=== PATIENT | female | born 1945 | race Caucasian/White ===

== ENCOUNTER 2018-01-26 12:50 | Outpatient (CLI) | payer MEDICARE, BC | END 2018-01-26 12:51 | disposition home or self-care (01) | LOC: BICMAMMO 12:50 | PROVIDERS: ATTEND Internal Medicine Medical Oncology | DX: Z12.31 Encounter for screening mammogram for malignant neoplasm of breast (principal); D80.1 Nonfamilial hypogammaglobulinemia; N18.3 Chronic kidney disease, stage 3 (moderate); D50.0 Iron deficiency anemia secondary to blood loss (chronic); Z85.6 Personal history of leukemia | CPT/HCPCS: 77063; 77067 ==

== ENCOUNTER 2018-07-20 11:51 | Outpatient (CLI) | payer MEDICARE, BC | END 2018-07-20 11:52 | disposition home or self-care (01) | LOC: BICRAD 11:51 | PROVIDERS: ATTEND Internal Medicine Medical Oncology | DX: C91.10 Chronic lymphocytic leukemia of B-cell type not having achieved remission (principal); R63.4 Abnormal weight loss | CPT/HCPCS: 71046 ==

== ENCOUNTER 2020-01-02 09:31 | Outpatient (CLI) | payer MEDICARE, BC ==
--- NOTE | 2020-01-02 10:44 | ULT ---
TRANSABDOMINAL TRANSVAGINAL PELVIC ULTRASOUND DATE:: 01/02/2020 12:00 AM CLINICAL HISTORY: Frequent urinary tract infections. COMPARISON: CT the chest, abdomen and pelvis dated November 16, 2014 TECHNIQUE: Grayscale, color Doppler and spectral Doppler images were obtained of the pelvis see a tra nsabdominal and transvaginal approach FINDINGS: UTERUS: Size: 5.8 x 4.0 x 2.1 Mass: None Cervix: Within normal limits Endometrial Thickness: 2.9 mm. Small amount of fluid is seen within the endometrial canal. OVARIES: Not visualized CUL-DE-SAC: No free fluid IMPRESSION: Small atrophic uterus. Endometrial stripe measures 2.9 mm, within normal limits for age and postmenopausal status. Small peter unt of fluid is seen within the endometrial canal is nonspecific. Recommend correlation for any exogenous hormones administered. Nonvisualization of the ovaries.
--- NOTE | 2020-01-02 11:13 | ULT ---
ULTRASOUND ABDOMEN COMPLETE: DATE: 01/02/2020. HISTORY: A 74-year-old female with frequent urinary tract infections. FINDINGS: Liver: Normal size and echogenicity. Gallbladder: Surgically absent. Common duct: 11 mm. Spleen: 22 x 9.5 x 9 cm. Nonspecific small focal 1.5 x 1.5 x 1 cm heterogeneously hypoechoic lesion within the spleen parenchyma. Pancreas: Nonspecific sonographic appearance. Kidneys: No hydronephrosis. Thin renal parenchyma, not unusual for age. Abdominal aorta: No aneurysm. Inferior vena cava: Unremarkable where visualized. No free fluid identified. IMPRESSION: 1. Splenomegaly. 2. Status post cholecystectomy. 3. Dilated common duct due to Status post cholecystectomy, unchanged when compared to CT of 5. JN R POS: CET
--- NOTE | 2020-01-02 11:23 | MMO ---
Bilateral MAMMO Bilat Screen [facility]. CLINICAL HISTORY: Patient is 74 years old and is seen for screening. The patient has no family history of breast cancer. The patient has a history of leukemia in 1991. The patient has a history of left Excisional Biopsy at age 43 - benign. VIEWS: The views performed were: bilateral craniocaudal with tomosynthesis and bilateral mediolateral oblique with tomosynthesis. FILMS COMPARED: The present examination has been compared to prior imaging studies performed at [facility] on 09/27/2014, 10/16/2015, 11/24/2016 and 01/26/2018. This study has been interpreted with the assistance of computer-aided detection. MAMMOGRAM FINDINGS: There are scattered fibroglandular densities. Finding 1: There are stable benign appearing calcifications seen in both breasts. Finding 2: There is a stable intramammary lymph node seen in the right breast. Finding 3: There are several stable focal asymmetries seen in both breasts. There are no suspicious masses, suspicious calcifications, or new areas of architectural distortion. IMPRESSION: THERE IS NO MAMMOGRAPHIC EVIDENCE OF MALIGNANCY. A ROUTINE FOLLOW-UP MAMMOGRAM IN 1 YEAR IS RECOMMENDED. THE RESULTS OF THIS EXAM WERE SENT TO THE PATIENT. ACR BI-RADS Category 2 - Benign finding MAMMOGRAPHY NOTE: 1. A negative mammogram report should not delay a biopsy if a dominant of clinically suspicious mass is present. 2. Approximately 10% to 15% of breast cancers are not detected by mammography. 3. Adenosis and dense breasts may obscure an underlying neoplasm. Reported by: PELON MILLS MD Electonically Signed: [id number]
== END 2020-01-02 09:32 | disposition home or self-care (01) ==
LOC: BICULT 09:31
PROVIDERS: ATTEND Internal Medicine Medical Oncology
DX: Z12.31 Encounter for screening mammogram for malignant neoplasm of breast (principal); N39.0 Urinary tract infection, site not specified; R16.1 Splenomegaly, not elsewhere classified; K83.8 Other specified diseases of biliary tract; N85.8 Other specified noninflammatory disorders of uterus; Z91.89 Other specified personal risk factors, not elsewhere classified; Z85.6 Personal history of leukemia; Z90.49 Acquired absence of other specified parts of digestive tract
CPT/HCPCS: 76856; 77063; 77067; 93975

== ENCOUNTER 2021-01-30 13:27 | Outpatient (CLI) | payer MEDICARE, BC | END 2021-01-30 13:28 | disposition home or self-care (01) | LOC: BICRAD 13:27 | PROVIDERS: ATTEND Internal Medicine Medical Oncology | DX: C91.10 Chronic lymphocytic leukemia of B-cell type not having achieved remission (principal); N18.30 Chronic kidney disease, stage 3 unspecified | CPT/HCPCS: 36415; 71046; 80048; 83970 ==

== ENCOUNTER 2022-04-22 15:27 | Outpatient (CLI) | payer MEDICARE, BC | END 2022-04-22 15:28 | disposition home or self-care (01) | LOC: BICULT 15:27 | PROVIDERS: ATTEND Internal Medicine Medical Oncology | DX: R60.0 Localized edema (principal); C91.10 Chronic lymphocytic leukemia of B-cell type not having achieved remission; D80.1 Nonfamilial hypogammaglobulinemia | CPT/HCPCS: 80053; 82248; 83615; 84100; 84550; 93970 ==

== ENCOUNTER 2023-01-02 14:00 | Emergency (ER) | payer MEDICARE, BC ==
[2023-01-02 14:50] LABS: #Basophils 0.2 thou/uL (0.0-0.2); #Eosinphils 0.1 thou/uL (0.0-0.7); #Lymphocytes 5.2 thou/uL (1.20-3.40); #Monocytes 0.7 thou/uL (0.11-0.59); %Eosinophils 0.9 % (0.0-10.0); %Lymphocytes 34.3 % (21.0-51.0); %Monocytes 4.5 % (0.0-10.0); %Neutrophils 59.3 % (42.0-75.0); Hemoglobin 14.4 g/dL (12.0-16.0); Mean Corpuscular HGB CONC 32.2 g/dL (32.0-36.0); Mean Corpuscular Volume 93.3 fl (78.0-98.0); Mean Platelet Volume 8.3 fL (7.4-10.4); Platelet Count 183 10x3/uL (130-400); White Blood Cell (WBC) Count 15.2 10x3/uL (4.8-10.8)
[2023-01-02 15:02] LABS: INR-International Normal Ratio 0.9; Prothrombin Time 12.9 sec (12.0-14.7)
[2023-01-02] MEDS ORDERED: Acetaminophen 500 MG TAB ONE (15:14)
[2023-01-02 15:37] LABS: Anion Gap 15 mmol/L (10-20); BUN (Urea Nitrogen) 24 mg/dL (9.8-20.1); Calc. Creatinine Clearance 0 mL/min (70-130); Calcium 9.8 mg/dL (7.8-10.44); Carbon Dioxide 26 mmol/L (23-31); Chloride 104 mmol/L (98-107); Estimated GFR 46; Glucose 102 mg/dL (83-110); Potassium 4.4 mmol/L (3.5-5.1); Sodium 141 mmol/L (136-145)
== END 2023-01-02 15:26 | disposition home or self-care (01) ==
LOC: ERS 14:00
DX: S00.03XA Contusion of scalp, initial encounter (principal); I10 Essential (primary) hypertension; W18.09XA Striking against other object with subsequent fall, initial encounter
CPT/HCPCS: 36415; 70450; 72125; 80048; 85025; 85610; 85730

== ENCOUNTER 2024-10-29 16:40 | Inpatient (IN) | payer MEDICARE, BC ==
[~2024-10-29 16:40] MED LIST: Iopamidol-370 76% 500 ML MDV (1 ML CHARGE) ONE
[2024-10-29 17:45] LABS: #Basophils Less than 0.03 10x3/uL (0.0-0.2); #Eosinophils Less than 0.03 10x3/uL (0.0-0.7); %Basophils 0.1 % (0.0-1.0); %Lymphocytes 15.4 % (21.0-51.0); %Monocytes 3.2 % (0.0-10.0); %Neutrophils 80.7 % (42.0-75.0); Hematocrit 39.9 % (36.0-47.0); Hemoglobin 12.9 g/dL (12.0-16.0); Mean Corpuscular HGB CONC 32.3 g/dL (32.0-36.0); Mean Corpuscular Hemoglobin 29.9 pg (27.0-31.0); Mean Corpuscular Volume 92.6 fL (78.0-98.0); Mean Platelet Volume 9.5 fL (7.4-10.4); Platelet Count 165 10x3/uL (130-400); RBC Distribution Width 13.2 % (11.5-14.5); Red Blood Cell (RBC) Count 4.31 mill/uL (4.20-5.40)
[2024-10-29 17:48] LABS: ALT (SGPT) 6 U/L (8-55); AST (SGOT) 10 U/L (5-34); Albumin 3.8 g/dL (3.4-4.8); Alkaline Phosphatase 93 U/L (40-110); Anion Gap 13 mmol/L (10-20); BUN (Urea Nitrogen) 23 mg/dL (9.8-20.1); Bilirubin, Total 0.2 mg/dL (0.2-1.2); Calc. Creatinine Clearance 0 mL/min (70-130); Calcium 9.3 mg/dL (7.8-10.44); Carbon Dioxide 22 mmol/L (23-31); Chloride 106 mmol/L (98-107); Estimated GFR 63; Globulin 2.7 g/dL (2.4-3.5); Glucose 118 mg/dL (83-110); Potassium 4.4 mmol/L (3.5-5.1); Protein, Total 6.5 g/dL (5.8-8.1); Sodium 137 mmol/L (136-145)
[2024-10-29 17:54] LABS: Troponin I Less than 0.010 ng/mL (< 0.028)
[2024-10-29] MEDS ORDERED: Dexamethasone 10 MG/ML VIAL ONE (18:04)
[2024-10-29] MEDS ORDERED: Magnesium 2 GM/50 ML BAG (IN WATER) ONE (18:04)
[2024-10-29] MEDS ORDERED: methylPREDNISolone Sod Succ 40 MG VIAL ONE (19:26)
[2024-10-29] MEDS ORDERED: Famotidine/PF 20 mg/2ml Vial ONE (19:26)
[2024-10-29] MEDS ORDERED: diphenhydrAMINE 50 MG/ML VIAL ONE (19:26)
[2024-10-29] MEDS ORDERED: Ipratropium Bromide 2.5 ml Neb ONE (19:33)
[2024-10-29] MEDS ORDERED: Albuterol 2.5 MG (0.5 mL) NEB ONE (19:33)
[2024-10-29] MEDS ORDERED: Sodium Chloride 0.9% 100 ML ONE (22:08)
[2024-10-29] MEDS ORDERED: cefTRIAXone (ROCEPHIN) 2 GM VIAL ONE (22:08)
[2024-10-29] MEDS ORDERED: Ondansetron ODT 4 MG TAB SL PRN (23:30)
[2024-10-29] MEDS ORDERED: Ondansetron PF 4 MG/2 ML Vial IVP PRN (23:30)
[2024-10-29] MEDS ORDERED: Ipratropium/Albuterol 3 ML NEB NEB PRN (23:31)
[2024-10-29 23:46] VITALS: BMI 25.7
[2024-10-30] MEDS: Sodium Chloride 0.9% 1,000 ML IV SCH (00:23)
[2024-10-30] MEDS ORDERED: Ondansetron ODT 4 MG TAB PO PRN (00:37)
[2024-10-30] MEDS ORDERED: Ipratropium/Albuterol 3 ML NEB NEB PRN (00:37)
[2024-10-30] MEDS ORDERED: Ipratropium/Albuterol 3 ML NEB NEB SCH (02:30)
[2024-10-30] MEDS: Ipratropium/Albuterol 3 ML NEB NEB SCH (02:35)
[2024-10-30] MEDS: Levothyroxine Sodium 50 MCG TAB PO SCH (04:49)
[2024-10-30] MEDS: Acetaminophen 325 MG TAB PO PRN (04:49)
[2024-10-30] MEDS: Ondansetron PF 4 MG/2 ML Vial IVP PRN (04:49)
[2024-10-30] MEDS: Guaifenesin DM 100-10/5 ML UDCUP PO PRN (04:50)
[2024-10-30 05:46] LABS: #Basophils Less than 0.03 10x3/uL (0.0-0.2); #Eosinophils Less than 0.03 10x3/uL (0.0-0.7); %Lymphocytes 20.1 % (21.0-51.0); %Monocytes 1.1 % (0.0-10.0); Hematocrit 37.6 % (36.0-47.0); Hemoglobin 12.1 g/dL (12.0-16.0); Mean Corpuscular HGB CONC 32.2 g/dL (32.0-36.0); Mean Corpuscular Volume 93.3 fL (78.0-98.0); Mean Platelet Volume 9.8 fL (7.4-10.4); Platelet Count 133 10x3/uL (130-400); RBC Distribution Width 13.3 % (11.5-14.5); Red Blood Cell (RBC) Count 4.03 mill/uL (4.20-5.40)
[2024-10-30 05:54] LABS: Anion Gap 11 mmol/L (10-20); BUN (Urea Nitrogen) 15 mg/dL (9.8-20.1); Calc. Creatinine Clearance 61 mL/min (70-130); Calcium 8.9 mg/dL (7.8-10.44); Carbon Dioxide 24 mmol/L (23-31); Chloride 108 mmol/L (98-107); Estimated GFR 72; Glucose 166 mg/dL (83-110); Sodium 139 mmol/L (136-145)
[2024-10-30] MEDS: Mometasone 100 MCG/Formoterol 5 MCG 120 PUFF INHALER INH SCH (08:24)
[2024-10-30] MEDS: Amlodipine 10 MG TAB PO SCH (08:39)
[2024-10-30] MEDS: Enoxaparin 40 MG (0.4 mL) SYRINGE SC SCH (08:39)
[2024-10-30] MEDS: methylPREDNISolone Sod Succ 40 MG VIAL IVP SCH (08:40)
[2024-10-30] MEDS: Pantoprazole 40 MG DR.TAB PO SCH (08:40)
[2024-10-30] MEDS: Sertraline 100 MG TAB PO SCH (08:40)
[2024-10-30] MEDS ORDERED: Dexamethasone 10 MG/ML VIAL SLOW IVP SCH (09:00)
[2024-10-30] MEDS: cloNIDine 0.1 MG TAB PO SCH (20:06)
[2024-10-31 07:07] LABS: #Basophils Less than 0.03 10x3/uL (0.0-0.2); #Eosinophils Less than 0.03 10x3/uL (0.0-0.7); %Basophils 0.1 % (0.0-1.0); %Lymphocytes 17.9 % (21.0-51.0); %Monocytes 5.1 % (0.0-10.0); %Neutrophils 76.1 % (42.0-75.0); Hemoglobin 10.7 g/dL (12.0-16.0); Mean Corpuscular HGB CONC 31.5 g/dL (32.0-36.0); Mean Corpuscular Hemoglobin 29.6 pg (27.0-31.0); Mean Corpuscular Volume 93.9 fL (78.0-98.0); Mean Platelet Volume 9.6 fL (7.4-10.4); Platelet Count 139 10x3/uL (130-400); RBC Distribution Width 13.6 % (11.5-14.5); Red Blood Cell (RBC) Count 3.62 mill/uL (4.20-5.40)
[2024-10-31 07:23] LABS: Anion Gap 12 mmol/L (10-20); BUN (Urea Nitrogen) 16 mg/dL (9.8-20.1); Calc. Creatinine Clearance 67 mL/min (70-130); Calcium 8.2 mg/dL (7.8-10.44); Carbon Dioxide 21 mmol/L (23-31); Chloride 112 mmol/L (98-107); Estimated GFR 80; Glucose 102 mg/dL (83-110); Potassium 3.6 mmol/L (3.5-5.1); Sodium 141 mmol/L (136-145)
[2024-11-01 06:04] LABS: #Basophils Less than 0.03 10x3/uL (0.0-0.2); #Eosinophils Less than 0.03 10x3/uL (0.0-0.7); %Basophils 0.2 % (0.0-1.0); %Lymphocytes 17.4 % (21.0-51.0); %Neutrophils 75.2 % (42.0-75.0); Hematocrit 34.7 % (36.0-47.0); Hemoglobin 11.2 g/dL (12.0-16.0); Mean Corpuscular HGB CONC 32.3 g/dL (32.0-36.0); Mean Platelet Volume 9.3 fL (7.4-10.4); Platelet Count 125 10x3/uL (130-400); RBC Distribution Width 13.3 % (11.5-14.5); Red Blood Cell (RBC) Count 3.73 mill/uL (4.20-5.40)
[2024-11-01 06:26] LABS: Anion Gap 10 mmol/L (10-20); BUN (Urea Nitrogen) 16 mg/dL (9.8-20.1); Calc. Creatinine Clearance 66 mL/min (70-130); Calcium 8.5 mg/dL (7.8-10.44); Carbon Dioxide 25 mmol/L (23-31); Chloride 107 mmol/L (98-107); Estimated GFR 79; Glucose 96 mg/dL (83-110); Potassium 4.1 mmol/L (3.5-5.1); Sodium 138 mmol/L (136-145)
[2024-11-01] MEDS: Sodium Chloride 3% (15 ML) NEB NEB SCH (19:08)
[2024-11-02] MEDS: Sodium Chloride 3% (15 ML) NEB NEB SCH (13:54)
[2024-11-02] MEDS: Ipratropium/Albuterol 3 ML NEB EZPAP SCH (13:54)
[2024-11-02 15:52] VITALS: BP 138/75; TEMP 97.7
== END 2024-11-02 15:44 | disposition home or self-care (01) | DRG 189 ==
LOC: ERS 16:40 → T4-B 23:07 → OBSVTOIN 10-30 14:27
PROVIDERS: ADMIT Physician Assistant; ATTEND Internal Medicine
DX: J96.01 Acute respiratory failure with hypoxia (principal); J45.901 Unspecified asthma with (acute) exacerbation; Z66 Do not resuscitate; E03.9 Hypothyroidism, unspecified; I10 Essential (primary) hypertension; Z91.041 Radiographic dye allergy status; Z88.8 Allergy status to other drugs, medicaments and biological substances; Z90.49 Acquired absence of other specified parts of digestive tract; M81.0 Age-related osteoporosis without current pathological fracture; Z79.899 Other long term (current) drug therapy; F32.9 Major depressive disorder, single episode, unspecified
CPT/HCPCS: 36415; 71045; 71275; 80048; 80053; 83605; 83880; 84145; 84484; 85025; 85379; 87428; 93005; 94640; 94664; 94760; 96365; 96372; 96375; 96376; G0378; J0696; J1100; J1200; J1650; J2405; J2919; J3475; J3490; J7030; J7611; J7620; J7644; Q9967